=== PATIENT | female | born 1995 | race Caucasian/White ===

== ENCOUNTER 2016-06-13 02:05 | Emergency (ER) | payer OTHER ==
[~2016-06-13] VITALS: Ht 165.1 cm; Wt 61.2 kg
[2016-06-13 03:38] LABS: BILIRUBIN,URINE NEGATIVE (NEG); GLUCOSE,URINE NEGATIVE (NEG); NITRITE,URINE NEGATIVE (NEG); PROTEIN,URINE NEGATIVE (NEG-TRACE); UROBILINOGEN,URINE 0.2 mg/dL (0.2 mg/dL)
[2016-06-13 03:39] LABS: BASO # 0.1 x10^3/uL (0.0-0.2); BASO % 1 % (0-3); EOS % 8 % (0-3); HEMOGLOBIN 10.3 g/dL (12.0-15.5); LYMPH # 3.6 x10^3/uL (1.0-4.8); LYMPH % 46 % (24-48); MEAN CORPUSCULAR HEMOGLOBIN 27 pg (25-35); MEAN CORPUSCULAR HGB CONC 32 g/dL (31-37); MEAN CORPUSCULAR VOLUME 84 fL (79-100); MONO % 9 % (0-9); NEUT % 36 % (31-73); PLATELET COUNT 291 x10^3/uL (140-400); RED BLOOD COUNT 3.83 x10^6/uL (3.50-5.40); RED CELL DISTRIBUTION WIDTH 18.9 % (11.5-14.5); WHITE BLOOD COUNT 7.7 x10^3/uL (4.0-11.0)
[2016-06-13 03:44] LABS: BARBITURATES NEG (NEG); BENZODIAZEPINES POS (NEG); CANNABINOIDS NEG (NEG); COCAINE NEG (NEG); METHADONE NEG (NEG); OPIATES NEG (NEG); PHENCYCLIDINE NEG (NEG)
[2016-06-13 03:45] LABS: BACTERIA,URINE FEW /HPF (0-FEW); SQUAMOUS EPITHELIAL CELL,UR MOD /LPF
[2016-06-13 03:46] LABS: ETHANOL, URINE NEG (NEG)
[2016-06-13 03:46] LABS: CALCIUM 8.8 mg/dL (8.5-10.1); CREATININE 0.7 mg/dL (0.6-1.0); GFR 105.6
[2016-06-13 03:52] LABS: ALBUMIN 3.7 g/dL (3.4-5.0); ALBUMIN/GLOBULIN RATIO 1.2 (1.0-1.7); TOTAL BILIRUBIN 0.2 mg/dL (0.2-1.0); TOTAL PROTEIN 6.8 g/dL (6.4-8.2)
[2016-06-13] MEDS ORDERED: MORPHINE SULFATE 4 MG/ML DISP.SYRIN. IV ONE ×2 (04:00→05:30)
[2016-06-13] MEDS ORDERED: IOHEXOL 240 MG/ML 50ML VIAL. IV ONE (04:00)
[2016-06-13] MEDS ORDERED: ONDANSETRON PF 4 MG/2 ML VIAL. IV ONE (04:00)
[2016-06-13] MEDS ORDERED: CONTRAST GIVEN MC PRN (04:00)
[2016-06-13] MEDS ORDERED: IV NORMAL SALINE 1000ML BAG 1,000 ML IV SCH (04:00)
[2016-06-13] MEDS ORDERED: IOHEXOL 300 MG/ML 75 ML VIAL IV ONE (04:00)
--- NOTE | 2016-06-13 05:19 | RAD ---
CT abdomen and pelvis with contrast Indication: Right lower quadrant pain. Axial imaging through the abdomen and pelvis was performed after the administration of intravenous contrast. PQRS STATEMENT One or more of the following individualized dose reduction techniques were utilized for this study: 1.Automated exposure control. 2.Adjustment of the mA and/orkVaccording to patient size. 3.Use of iterative reconstruction technique. No prior studies are available for comparison. The lung bases are clear. The liver and gallbladder are unremarkable. The pancreas and spleen are unremarkable. No adrenal mass is detected. The kidneys are unremarkable. The small and large bowel loops are normal in caliber. The appendix is visualized and unremarkable. No periappendiceal inflammation is detected. There is no free fluid in the abdomen or pelvis. The uterus and bladder are unremarkable. Moderate stool throughout the colon is noted. Impression: No CT evidence of acute appendicitis. No acute feature is detected. Electronically signed by: Josh Shelton MD (Jun 13, 2016 05:18:09)
[2016-06-13] MEDS ORDERED: OXYCODONE/APAP 5/325 TABLET. PO ONE (06:30)
[2016-06-13 06:37] VITALS: BP 127/86
--- NOTE | 2016-06-13 06:59 | RAD ---
Ultrasound pelvis Indication: Right-sided pelvic pain. Transabdominal pelvic ultrasound was performed. The uterus measures 8.8 x 4.9 centimeters. The endometrium is 10 millimeters in thickness. No uterine mass is detected. The right ovary measures 3.7 x 2.9 x 2.1 centimeters. The left ovary measures 2.5 x 1.5 x 1.5 centimeters. There is blood flow to both ovaries. There is a right ovarian cyst measuring 2.5 centimeters. No free fluid is detected. Impression: 2.5 centimeter right ovarian cyst. There is no evidence of ovarian torsion. The study is otherwise unremarkable. Electronically signed by: Josh Shelton MD (Jun 13, 2016 06:57:58)
[2016-06-13] MEDS ORDERED: HYDR-79 PO (07:17)
--- NOTE | 2016-06-13 07:17 | PHYS DOC ---
Past Medical History Past Medical History: Ovarian Cyst Additional Past Medical Histor: ovarian cyst, colitis Past Surgical History: Alcohol Use: None Drug Use: None Adult General Chief Complaint Chief Complaint: ABDOMINAL PAIN HPI HPI Patient is a 21 year old female who presents with abdominal pain. Patient reports for the past 3 weeks she has been having sharp right lower quadrant pain. This pain waxes and wanes without clear mitigating factors. It is much worse over the past 6 hours. She also reports diarrhea. She was seen in an emergency department in [place] 3 weeks ago; at this time she was told she had colitis and an ovarian cyst and was prescribed hydrocodone. She does have an appointment with a corporate communications specialist coming up in 2 days. She is taking Tylenol at home with insufficient relief. Review of Systems Review of Systems Constitutional: Denies fever or chills Eyes: Denies change in visual acuity or eye pain HENT: Denies nasal congestion or sore throat Respiratory: Denies cough or shortness of breath Cardiovascular: Denies chest pain GI: RLQ abdominal pain, diarrhea. Denies nausea, vomiting : Denies dysuria or hematuria Musculoskeletal: Denies back pain or joint pain Integument: Denies rash or skin lesions Neurologic: Denies headache, focal weakness or sensory changes Current Medications Current Medications Current Medications Medications (Trade) Dose Ordered Sig/Josefina Start Time Stop Time Status Last Admin Dose Admin Info (Do NOT chart on this entry -- for MONITORING) 1 each PRN DAILY PRN 06/13/16 04:00 06/13/16 07:25 DC Iohexol (Omnipaque 240 Mg/ml) 30 ml 1X ONCE 06/13/16 04:00 06/13/16 04:01 DC Iohexol (Omnipaque 300 Mg/ml) 75 ml 1X ONCE 06/13/16 04:00 06/13/16 04:01 DC Morphine Sulfate 4 mg 1X ONCE 06/13/16 05:30 06/13/16 05:31 DC 06/13/16 05:30 4 MG Ondansetron HCl (Zofran) 4 mg 1X ONCE 06/13/16 04:00 06/13/16 04:01 DC 06/13/16 04:00 4 MG Oxycodone/ Acetaminophen (Percocet 5/325) 2 tab 1X ONCE 06/13/16 06:30 06/13/16 06:31 DC 06/13/16 06:30 2 TAB Sodium Chloride (Iv Sodium Chloride 0.9% 1000ml Bag) 1,000 ml @ 1,000 mls/hr Q1H 06/13/16 04:00 06/13/16 04:59 DC 06/13/16 04:00 1,000 MLS/HR Allergies Allergies Allergies Coded Allergies Type Severity Reaction Last Updated Verified morphine Allergy Mild "headache" 06/13/16 Yes Physical Exam Physical Exam Constitutional: Well developed, well nourished, non-toxic appearance HENT: Normocephalic, atraumatic, bilateral external ears normal Eyes: EOMI, conjunctiva normal, no discharge Neck: Normal range of motion, no stridor Cardiovascular: Heart rate normal, regular rhythm, no murmur Lungs & Thorax: Bilateral breath sounds clear to auscultation Abdomen: Bowel sounds normal, soft, non-distended, RLQ TTP without guarding or rebound Pelvic: Scant white discharge in vault, R adnexal tenderness, no CMT or L adnexal tenderness Skin: Warm, dry, no erythema, no rash Extremities: No obvious deformity, no edema Neurologic: Alert and oriented X 3, no gross deficits noted Current Patient Data Vital Signs Vital Signs Date Time Temp Pulse Resp B/P Pulse Ox O2 Delivery O2 Flow Rate FiO2 06/13/16 06:37 70 18 127/86 100 Tracheal Collar 06/13/16 02:40 97.8 97.8 Lab Values Laboratory Tests Test 06/13/16 01:46 06/13/16 02:12 06/13/16 03:30 POC Urine HCG, Qualitative Hcg negative (Negative) Urine Collection Type Unknown Urine Color Yellow Urine Clarity Clear Urine pH 7.0 Urine Specific [place] 1.015 Urine Protein Negativemg/dL (NEG-TRACE) Urine Glucose (UA) Negativemg/dL (NEG) Urine Ketones (Stick) Negativemg/dL (NEG) Urine Blood Negative (NEG) Urine Nitrite Negative (NEG) Urine Bilirubin Negative (NEG) Urine Urobilinogen Dipstick 0.2mg/dL (0.2 mg/dL) Urine Leukocyte Esterase Negative (NEG) Urine RBC 1-2/HPF (0-2) Urine WBC 1-4/HPF (0-4) Urine Squamous Epithelial Cells Mod/LPF Urine Bacteria Few/HPF (0-FEW) Urine Mucus Slight/LPF Urine Opiates Screen Neg (NEG) Urine Methadone Screen Neg (NEG) Urine Barbiturates Neg (NEG) Urine Phencyclidine Screen Neg (NEG) Urine Amphetamine/Methamphetamine Neg (NEG) Urine Benzodiazepines Screen Pos (NEG) Urine Cocaine Screen Neg (NEG) Urine Cannabinoids Screen Neg (NEG) Urine Ethyl Alcohol Neg (NEG) White Blood Count 7.7x10^3/uL (4.0-11.0) Red Blood Count 3.83x10^6/uL (3.50-5.40) Hemoglobin 10.3g/dL (12.0-15.5) L Hematocrit 32.0% (36.0-47.0) L Mean Corpuscular Volume 84fL (79-100) Mean Corpuscular Hemoglobin 27pg (25-35) Mean Corpuscular Hemoglobin Concent 32g/dL (31-37) Red Cell Distribution Width 18.9% (11.5-14.5) H Platelet Count 291x10^3/uL (140-400) Neutrophils (%) (Auto) 36% (31-73) Lymphocytes (%) (Auto) 46% (24-48) Monocytes (%) (Auto) 9% (0-9) Eosinophils (%) (Auto) 8% (0-3) H Basophils (%) (Auto) 1% (0-3) Neutrophils # (Auto) 2.8x10^3uL (1.8-7.7) Lymphocytes # (Auto) 3.6x10^3/uL (1.0-4.8) Monocytes # (Auto) 0.7x10^3/uL (0.0-1.1) Eosinophils # (Auto) 0.6x10^3/uL (0.0-0.7) Basophils # (Auto) 0.1x10^3/uL (0.0-0.2) Sodium Level 142mmol/L (136-145) Potassium Level 4.0mmol/L (3.5-5.1) Chloride Level 106mmol/L (98-107) Carbon Dioxide Level 27mmol/L (21-32) Anion Gap 9 (6-14) Blood Urea Nitrogen 9mg/dL (7-20) Creatinine 0.7mg/dL (0.6-1.0) Estimated GFR (Cockcroft-Gault) 105.6 BUN/Creatinine Ratio 13 (6-20) Glucose Level 88mg/dL (70-99) Calcium Level 8.8mg/dL (8.5-10.1) Total Bilirubin 0.2mg/dL (0.2-1.0) Aspartate Amino Transferase (AST) 12U/L (15-37) L Alanine Aminotransferase (ALT) 18U/L (14-59) Alkaline Phosphatase 53U/L (46-116) Total Protein 6.8g/dL (6.4-8.2) Albumin 3.7g/dL (3.4-5.0) Albumin/Globulin Ratio 1.2 (1.0-1.7) Lipase 128U/L (73-393) Laboratory Tests 06/13/16 03:30 Laboratory Tests 06/13/16 03:30 Microbiology 06/13/16 Wet Prep - Final, Complete EKG EKG [] Radiology/Procedures Radiology/Procedures CT A/P: Impression: No CT evidence of acute appendicitis. No acute feature is detected. Pelvic US: Impression: 2.5 centimeter right ovarian cyst. There is no evidence of ovarian torsion. The study is otherwise unremarkable. Course & Med Decision Making Course & Med Decision Making Pertinent Labs and Imaging studies reviewed. (See chart for details) Patient is 21-year-old female who presents with right lower quadrant pain. Possibly due to ovarian cyst, must also consider appendicitis. Labs, UA, CT abdomen/pelvis ordered. IV fluids, nausea meds, pain meds ordered for relief of symptoms. Pelvic exam performed, swabs sent. Labs unremarkable. CT exam without clear cause for pain. Pelvic ultrasound also ordered to rule out torsion. Ovarian cyst noted on ultrasound. Discussed results with patient. Will discharge home with short course of pain medication, instructions for follow-up , return precautions. Dragon Disclaimer Dragon Disclaimer This electronic medical record was generated, in whole or in part, using a voice recognition dictation system. Departure Departure Impression: Primary Impression: Ovarian cyst Disposition: 01 HOME, SELF-CARE Condition: IMPROVED Referrals: NO PCP (PCP) GOVIND ARNOLD MD Patient Instructions: Ovarian Cyst Additional Instructions: Thank you for allowing us to provide care today in the Emergency Department. Take the provided medication as directed. Use caution when taking the pain medication as it can make you drowsy. Schedule a follow up appointment with an CHIEF ARCHITECT using the provided contact information. Return promptly to the Emergency Department if you develop any new or concerning symptoms. Scripts Hydrocodone/Ibuprofen (Hydrocodone-Ibuprofen 7.5-200 )1 Each Tablet1 Tab PO PRN Q6HRS PRN PAIN #15 TAB Ref 0 Prov:PETRONA LEONG MD 06/13/16 PETRONA LEONG MD Jun 13, 2016 07:17
== END 2016-06-13 07:24 | disposition home or self-care (01) ==
LOC: ER 02:05
DX: N83.201 Unspecified ovarian cyst, right side (principal); Z88.5 Allergy status to narcotic agent
CPT/HCPCS: 36415; 74177; 76856; 80053; 80305; 80320; 81001; 81025; 83690; 85027; 87491; 87591; 96361; 96374; 96375; 96376; 99285; J2270; J2405; J7030; Q0111; G0481